=== PATIENT | female | born 1985 | race Caucasian/White ===

== ENCOUNTER 2016-11-02 08:21 | Day surgery (SDC) | payer OTHER ==
[~2016-11-02] VITALS: Ht 160 cm; Wt 53.5 kg
[~2016-11-02 08:21] MED LIST: FLAGYL500 MG PO; GABAPENTIN300 MG PO; HYDROCODON-ACE1 EAC7 PO; MACROBID100 MG PO; METHADONE 22 MG/1 ML PO; PRENATAL TABLE1 EAC3 PO; PYRIDIUM100 MG PO; SELENIUM100 MICROG PO; VITAMIN E400 UNIT PO
[2016-11-02 09:22] VITALS: BP 121/69
[2016-11-02 10:12] LABS: BASOPHIL COUNT 0.1 K/uL (0-0.1); EOSINOPHIL (%) 2.9 % (0-5); EOSINOPHIL COUNT 0.2 K/uL (0-0.3); IMMATURE GRANULOCYTE (%) 0.2 % (0.0-0.7); INSTRUMENT ABS NEUTROPHIL CT 2.7 K/uL; LYMPHOCYTE COUNT 1.8 K/uL (1.0-2.8); MCH 29.5 PG (29.0-34.0); MCHC 33.7 G/DL (30.0-36.0); MCV 87.6 FL (83-99); MONOCYTE (%) 8.5 % (3-12); MONOCYTE COUNT 0.4 K/uL (0-0.8); NEUTROPHIL (%) 52.4 % (45-76); NEUTROPHIL COUNT 2.7 K/uL (1.8-6.4); NRBC (%) 0.4 /100 WBC (0-0); PLATELET COUNT 244 K/uL (156-360); RBC DIS.WIDTH-CV 12.7 % (11.8-14.6); RBC DIS.WIDTH-SD 40.4 % (39-53); RED BLOOD COUNT 4.91 M/uL (3.80-5.20); WHITE BLOOD COUNT 5.2 K/uL (4.1-10.2)
[2016-11-02] MEDS ORDERED: PERCOCET 5/31 TABLET PO (11:26)
[2016-11-02 12:17] VITALS: BP 144/65
[2016-11-02 13:30] VITALS: BP 132/72
== END 2016-11-02 13:45 | disposition home or self-care (01) ==
LOC: SDC 08:21
PROVIDERS: Obstetrics & Gynecology Obstetrics
DX: Z30.2 Encounter for sterilization (principal); Z30.432 Encounter for removal of intrauterine contraceptive device; N83.8 Other noninflammatory disorders of ovary, fallopian tube and broad ligament; Q85.00 Neurofibromatosis, unspecified; F10.20 Alcohol dependence, uncomplicated; F11.20 Opioid dependence, uncomplicated; F17.200 Nicotine dependence, unspecified, uncomplicated; Z88.8 Allergy status to other drugs, medicaments and biological substances
CPT/HCPCS: 84702; 85025; 86870; 86900; 86901; J0330; J1100; J1885; J2250; J2405; J3010; S0020